=== PATIENT | male | born 1990 | race Caucasian/White ===

== ENCOUNTER 2017-09-14 23:40 | Emergency (ER) | payer OTHER ==
[~2017-09-14] VITALS: Ht 180.3 cm; Wt 66.5 kg
[~2017-09-14 23:40] MED LIST: INTUNIV4 MG PO
[2017-09-15] MEDS ORDERED: PERCOCET 5/31 TABLET PO (00:48)
[2017-09-15 01:05] VITALS: BP 132/88
== END 2017-09-15 01:07 | disposition home or self-care (01) ==
LOC: EXP 23:40 → EME 23:40 → EXP 09-15 01:07
PROC: 2W38X1Z Immobilization of Right Upper Extremity using Splint (ICD-10-PCS; principal; 2017-09-15)
DX: S62.634A Displaced fracture of distal phalanx of right ring finger, initial encounter for closed fracture (principal); Y93.67 Activity, basketball; F90.9 Attention-deficit hyperactivity disorder, unspecified type; Z88.0 Allergy status to penicillin; Z87.891 Personal history of nicotine dependence
CPT/HCPCS: 73140; 99281; 99284

== ENCOUNTER 2018-01-04 13:35 | Emergency (ER) | payer OTHER ==
[~2018-01-04] VITALS: Ht 180.3 cm; Wt 66.4 kg
[~2018-01-04 13:35] MED LIST changes: +PERCOCET 5/31 TABLET PO
[2018-01-04] MEDS ORDERED: MOTRIN600 MG PO (16:27)
[2018-01-04] MEDS ORDERED: ZOFRAN4 MG PO (16:27)
[2018-01-04 16:30] VITALS: BP 108/66
== END 2018-01-04 16:30 | disposition home or self-care (01) ==
LOC: EME 13:35
DX: B34.9 Viral infection, unspecified (principal); R51 Headache; I10 Essential (primary) hypertension; F90.9 Attention-deficit hyperactivity disorder, unspecified type; Z88.0 Allergy status to penicillin; Z87.891 Personal history of nicotine dependence
CPT/HCPCS: 87502; 87651 90; 99281; 99284